=== PATIENT | female | born 1990 | race Caucasian/White ===

== ENCOUNTER 2020-07-01 20:34 | Emergency (ER) | payer MEDICAID, OTHER ==
[~2020-07-01] VITALS: Ht 162.6 cm; Wt 63.0 kg
--- NOTE | 2020-07-01 20:36 | NUR ---
LILLIAN KAY. TAKEN TO CHAIR C
[2020-07-01 20:38] VITALS: BP 142/79
[2020-07-01 20:42] VITALS: BP 142/79
--- NOTE | 2020-07-01 20:45 | NUR ---
see complete assessment.
--- NOTE | 2020-07-01 20:48 | NUR ---
Dr. Nagy examining patient.
[2020-07-01] MEDS ORDERED: LIDOCAINE MPF 1% 5 ML ONE (20:52)
[2020-07-01] MEDS ORDERED: LIDOCAINE MPF 1% 10 MG/ML VIAL INJ ONE (20:55)
--- NOTE | 2020-07-01 20:56 | NUR ---
Magdiel BERMAN irrigating pt lac. pt appears to be tolerating well.
--- NOTE | 2020-07-01 20:58 | NUR ---
per pt, Tetanus UTD < 5 years
--- NOTE | 2020-07-01 21:34 | NUR ---
pt d/c to [facility] custody with VSS. d/c education given regarding suture care. pt accompanied by Officer Corbin #[id number]
== END 2020-07-01 21:34 ==
LOC: MED 20:34
DX: S61.216A Laceration without foreign body of right little finger without damage to nail, initial encounter (principal); F32.9 Major depressive disorder, single episode, unspecified; Z88.0 Allergy status to penicillin; Z02.89 Encounter for other administrative examinations; W22.8XXA Striking against or struck by other objects, initial encounter; Y93.89 Activity, other specified; Y92.89 Other specified places as the place of occurrence of the external cause; Y99.8 Other external cause status
CPT/HCPCS: 12001; 99283; J2001